=== PATIENT | female | born 1955 | race Caucasian/White ===

== ENCOUNTER 2017-08-20 20:01 | Emergency (ER) | payer SELFPAY ==
--- NOTE | 2017-08-20 20:24 | PD ---
HPI Chief Complaint: Back/ Neck Pain or Injury Time Seen by Provider: 20:20 Travel History International Travel<30 days: No Contact w/Intl Traveler<30days: No Traveled to known affect area: No History of Present Illness HPI PATIENT STATES THAT OVER LAST FEW DAYS SHE HAS HAD WORSENING DIFFUSE ABDOMINAL CRAMPING PAIN, 02/23, WHICH IS DIFFERENT THAN HER CHRONIC PAINS THAT SHE HAS HAD FOR YEARS (HIP, NECK AND BACK---THESE WERE TABLED FOR OUTPATIENT EVALUATION). THE ABDOMINAL PAIN APPEARS TO WORSEN WITH ACTIVITY LIKE WALKING, DENIES ANY FEVER/N/V/ ASSOC WITH THIS PAIN. DENIES ANY ALLEVIATING FACTORS NO PCP SINCE MOVED FROM [place] IN OCT ALL:[facility] PSHX: GB, COLONOSCOPY "NEGATIVE" ACCORDING TO PATIENT DONE THIS OCTOBER WHEN SHE MOVED TO [place] PMHX: PFSH Past Medical History Cardiovascular Problems: Yes (HTN) Social History Tobacco Use: No Allergies-Medications (Allergen,Severity, Reaction): Coded Allergies: Iodinated Contrast- Oral and IV Dye (Verified Allergy, Severe, 08/20/17) hives and itching amoxicillin (Verified Allergy, Severe, Hives, 08/20/17) cefuroxime (Verified Allergy, Severe, Hives, 08/20/17) dulaglutide (Verified Allergy, Severe, 08/20/17) hydrochlorothiazide (Verified Allergy, Severe, 08/20/17) liraglutide (Verified Allergy, Severe, 08/20/17) gabapentin (Verified Adverse Reaction, Severe, anxiety, 08/20/17) Uncoded Allergies: all statins (Allergy, Severe, 08/20/17) Reported Meds & Prescriptions Reported Meds & Active Scripts Active Reported Levothyroxine (Levothyroxine Sodium) 100 Mcg Tab 100 Mcg PO DAILY Pantoprazole (Pantoprazole Sodium) 40 Mg Tab 40 Mg PO DAILY Metformin (Metformin HCl) 1,000 Mg Tab 1,000 Mg PO BIDPC Glimepiride 2 Mg Tab 2 Mg PO DAILY Take with breakfast or first main meal Metoprolol Tartrate 25 Mg Tab 25 Mg PO BID Lisinopril 10 Mg Tab 10 Mg PO DAILY Doxazosin (Doxazosin Mesylate) 2 Mg Tab 2 Mg PO DAILY Paxil (Paroxetine HCl) 10 Mg Tab 20 Mg PO DAILY Review of Systems Except as stated in HPI: all other systems reviewed are Neg General / Constitutional: No: Fever Eyes: No: Visual changes HENT: No: Headaches Cardiovascular: No: Chest Pain or Discomfort Respiratory: No: Shortness of Breath Gastrointestinal: Positive: Nausea, Abdominal Pain Genitourinary: No: Dysuria Musculoskeletal: No: Pain Skin: No Rash Neurologic: No: Weakness Psychiatric: No: Depression Endocrine: No: Polydipsia Hematologic/Lymphatic: No: Easy Bruising Physical Exam Narrative GENERAL: SKIN: Warm and dry. HEAD: Atraumatic. Normocephalic. EYES: Pupils equal and round. No scleral icterus. No injection or drainage. ENT: No nasal bleeding or discharge. Mucous membranes pink and moist. NECK: Trachea midline. No JVD. CARDIOVASCULAR: Regular rate and rhythm. RESPIRATORY: No accessory muscle use. Clear to auscultation. Breath sounds equal bilaterally. GASTROINTESTINAL: Abdomen soft, non-tender, nondistended. MUSCULOSKELETAL: Extremities without clubbing, cyanosis, or edema. No obvious deformities. NEUROLOGICAL: Awake and alert. No obvious cranial nerve deficits. Motor grossly within normal limits. Five out of 5 muscle strength in the arms and legs. Normal speech. PSYCHIATRIC: Appropriate mood and affect; insight and judgment normal. Data Data Last Documented VS Vital Signs Date Time Temp Pulse Resp B/P (MAP) Pulse Ox O2 Delivery O2 Flow Rate FiO2 08/20/17 21:58 98.7 67 18 206/97 (133) 98 Room Air Orders Orders Complete Blood Count With Diff (08/20/17 20:32) Comprehensive Metabolic Panel (08/20/17 20:32) Lipase (08/20/17 20:32) Prothrombin Time / Inr (Pt) (08/20/17 20:32) Act Partial Throm Time (Ptt) (08/20/17 20:32) Urinalysis - C+S If Indicated (08/20/17 20:32) Iv Access Insert/Monitor (08/20/17 20:32) Ecg Monitoring (08/20/17 20:32) Oximetry (08/20/17 20:32) NPO (08/20/17 20:32) Sodium Chloride 0.9% Flush (Ns Flush) (08/20/17 20:45) Electrocardiogram (08/20/17 20:32) Ct Abd/Pel W/O Iv Contrast (08/20/17 21:17) Morphine Inj (Morphine Inj) (08/20/17 22:15) Ondansetron Inj (Zofran Inj) (08/20/17 22:15) Morphine Inj (Morphine Inj) (08/20/17 23:15) Labs Laboratory Tests Test 08/20/17 20:40 White Blood Count 6.3 TH/MM3 Red Blood Count 4.26 MIL/MM3 Hemoglobin 13.4 GM/DL Hematocrit 38.9 % Mean Corpuscular Volume 91.2 FL Mean Corpuscular Hemoglobin 31.4 PG Mean Corpuscular Hemoglobin Concent 34.5 % Red Cell Distribution Width 13.2 % Platelet Count 148 TH/MM3 Mean Platelet Volume 7.2 FL Neutrophils (%) (Auto) 48.8 % Lymphocytes (%) (Auto) 37.6 % Monocytes (%) (Auto) 9.8 % Eosinophils (%) (Auto) 2.6 % Basophils (%) (Auto) 1.2 % Neutrophils # (Auto) 3.1 TH/MM3 Lymphocytes # (Auto) 2.4 TH/MM3 Monocytes # (Auto) 0.6 TH/MM3 Eosinophils # (Auto) 0.2 TH/MM3 Basophils # (Auto) 0.1 TH/MM3 CBC Comment DIFF FINAL Differential Comment Prothrombin Time 10.4 SEC Prothromb Time International Ratio 1.0 RATIO Activated Partial Thromboplast Time 25.6 SEC Urine Color LIGHT-YELLOW Urine Turbidity CLEAR Urine pH 6.0 Urine Specific [place] 1.006 Urine Protein NEG mg/dL Urine Glucose (UA) NEG mg/dL Urine Ketones NEG mg/dL Urine Occult Blood NEG Urine Nitrite NEG Urine Bilirubin NEG Urine Urobilinogen LESS THAN 2.0 MG/DL Urine Leukocyte Esterase NEG Urine WBC 2 /hpf Urine Bacteria RARE /hpf Microscopic Urinalysis Comment CULT NOT INDICATED Blood Urea Nitrogen 10 MG/DL Creatinine 1.06 MG/DL Random Glucose 107 MG/DL Total Protein 7.1 GM/DL Albumin 3.9 GM/DL Calcium Level 8.8 MG/DL Alkaline Phosphatase 56 U/L Aspartate Amino Transf (AST/SGOT) 58 U/L Alanine Aminotransferase (ALT/SGPT) 68 U/L Total Bilirubin 0.3 MG/DL Sodium Level 139 MEQ/L Potassium Level 4.2 MEQ/L Chloride Level 105 MEQ/L Carbon Dioxide Level 24.8 MEQ/L Anion Gap 9 MEQ/L Estimat Glomerular Filtration Rate 52 ML/MIN Lipase 244 U/L MDM Medical Decision Making Medical Screen Exam Complete: Yes Emergency Medical Condition: Yes Medical Record Reviewed: Yes Differential Diagnosis APPENDICITIS V COLITIS V KIDNEY STONES V SBO V ILEUS Narrative Course PATIENT WAS NOT FOUND TO HAVE ANY SURGICAL CASE (APPY, SBO, ILEUS)...WILL D/C HOME AND RECC GI FOLLOWUP Diagnosis Primary Impression: Abdominal pain Qualified Codes: R10.84 - Generalized abdominal pain Additional Impressions: MILD HEPATOSPLENOMEGALY Scoliosis Qualified Codes: M41.129 - Adolescent idiopathic scoliosis, site unspecified Patient Instructions: Abdominal Pain (ED), General Instructions, Scoliosis in Children (GEN) Scripts Tramadol (Ultram) 50 Mg Tab 50 MG PO Q4H Y for PAIN, #10 TAB 0 Refills Prov: Sebastian Selby MD 08/20/17 Sucralfate (Carafate) 1 Gram Tab 1 GM PO TID for Ulcer Prevention, #90 TAB 0 Refills On empty stomach Prov: Sebastian Selby MD 08/20/17 Disposition: 01 DISCHARGE HOME Condition: Stable Sebastian Selby MD Aug 20, 2017 20:24
[2017-08-20] MEDS ORDERED: LISI10TA3 PO (20:27)
[2017-08-20] MEDS ORDERED: GLIM1TAB PO (20:27)
[2017-08-20] MEDS ORDERED: METO25TA3 PO (20:27)
[2017-08-20] MEDS ORDERED: PANT40TA3 PO (20:27)
[2017-08-20] MEDS ORDERED: DOXA1TAB35 PO (20:27)
[2017-08-20] MEDS ORDERED: METO1TAB42 PO (20:27)
[2017-08-20] MEDS ORDERED: PAXI10TA8 PO (20:27)
[2017-08-20] MEDS ORDERED: METF1000 PO (20:27)
[2017-08-20] MEDS ORDERED: GLIM2TAB PO (20:27)
[2017-08-20] MEDS ORDERED: LEVO100T5 PO (20:31)
[2017-08-20] MEDS ORDERED: SODIUM CHLORIDE 0.9% FLUSH 10 ML FLUSH IV FLUSH PRN (20:45)
[2017-08-20 21:11] LABS: AUTOMATED NEUTROPHIL # 3.1 TH/MM3 (1.8-7.7); BASOPHIL # 0.1 TH/MM3 (0-0.2); BASOPHIL % 1.2 % (0.0-2.0); EOSINOPHIL # 0.2 TH/MM3 (0-0.4); EOSINOPHIL % 2.6 % (0.0-4.0); HEMATOCRIT 38.9 % (35.0-46.0); HEMO FLAGS DIFF FINAL; LYMPH % 37.6 % (9.0-44.0); LYMPHOCYTE # 2.4 TH/MM3 (1.0-4.8); MEAN CELL VOLUME 91.2 FL (80.0-100.0); MEAN CORPUSCULAR HEMOGLOBIN 31.4 PG (27.0-34.0); MEAN CORPUSCULAR HGB CONC 34.5 % (32.0-36.0); MONO % 9.8 % (0.0-8.0); NEUT % 48.8 % (16.0-70.0); PLATELET COUNT 148 TH/MM3 (150-450); RED BLOOD COUNT 4.26 MIL/MM3 (4.00-5.30); RED CELL DISTRIBUTION WIDTH 13.2 % (11.6-17.2); WHITE BLOOD COUNT 6.3 TH/MM3 (4.0-11.0)
[2017-08-20 21:18] LABS: BACTERIA, URINE RARE /hpf; BLOOD, URINE NEG (NEG); COMMENT (UR) CULT NOT INDICATED; CULTURE IF INDICATED CULT NOT INDICATED; GLUCOSE,URINE NEG (NEG); KETONE, URINE NEG (NEG); NITRITE,URINE NEG (NEG); URINE COLOR LIGHT-YELLOW (YELLW/STRAW)
[2017-08-20 21:20] LABS: APTT (PATIENT) 25.6 SEC (24.3-30.1); PROTHROMBIN TIME - PATIENT 10.4 SEC (9.8-11.6)
[2017-08-20 21:27] LABS: ALKALINE PHOSPHATASE 56 U/L (45-117); TOTAL BILIRUBIN ADULT 0.3 MG/DL (0.2-1.0)
[2017-08-20 21:28] LABS: ALT (GPT) 68 U/L (10-53); ANION GAP 9 MEQ/L (5-15); AST (GOT) 58 U/L (15-37); BICARBONATE 24.8 MEQ/L (21.0-32.0); BLOOD UREA NITROGEN 10 MG/DL (7-18); CHLORIDE 105 MEQ/L (98-107); GLOMERULAR FILTRATION RATE 52 ML/MIN (>89); POTASSIUM 4.2 MEQ/L (3.5-5.1); SODIUM (NA) 139 MEQ/L (136-145)
[2017-08-20 21:48] VITALS: RESP 18; O2SAT 97
[2017-08-20 21:58] VITALS: BP 206/97; PULSE 67; RESP 18; TEMP 98.7; O2SAT 98
--- NOTE | 2017-08-20 22:13 | RADRPT ---
EXAM DATE/TIME: 08/20/2017 21:36 [facility] COMPARISON: No previous studies available for comparison. INDICATIONS : Patient complains of bilateral flank pain. ORAL CONTRAST: No oral contrast ingested. RADIATION DOSE: 8.22 CTDIvol (mGy) MEDICAL HISTORY : Cardiovascular disease. Hypertension. SURGICAL HISTORY : Cholecystectomy. ENCOUNTER: Initial ACUITY: 1 day PAIN SCALE: 5/10 LOCATION: Bilateral flank TECHNIQUE: Volumetric scanning of the abdomen and pelvis was performed. Using automated exposure control and ad justment of the mA and/or kV according to patient size, radiation dose was kept as low as reasonably achievable to obtain optimal diagnostic quality images. DICOM format image data is available electro nically for review and comparison. FINDINGS: LOWER LUNGS: The visualized lower lungs are clear. LIVER: Mild hepatomegaly is noted. Homogeneous density without lesion. There is no dilation of the biliary tree. No calcified gallstones. SPLEEN: Mild splenomegaly is noted. PANCREAS: Within normal limits. KIDNEYS: Normal in size and shape. There is no mass, stone, or hydronephrosis. ADRENAL GLANDS: Within normal limits. VASCULAR: There is no aortic aneurysm. BOWEL/MESENTERY: The stomach, small bowel, and colon demonstrate no acute abnormality. There is no free intraperitone al air or fluid. ABDOMINAL WALL: Within normal limits. RETROPERITONEUM: There is no lymphadenopathy. BLADDER: No wall thickening or mass. REPRODUCTIVE: Within normal limits. INGUINAL: There is no lymphadenopathy or hernia. MUSCULOSKELETAL: Mild degenerative changes and scoliosis of the thoracolumbar spine are noted. CONCLUSION: 1. Mild hepatosplenomegaly. 2. No acute obstructive uropathy. 3. Mild degenerative changes and scoliosis of the thoracolumbar spine. aNvi Haq MD on August 20, 2017 at 22:09 Board Certified Radiologist. This report was verified electronically.
[2017-08-20] MEDS ORDERED: MORPHINE SULFATE 4 MG/ML INJ IM ONE (22:15)
[2017-08-20] MEDS ORDERED: ONDANSETRON HCL 4 MG/2 ML VIAL IV PUSH ONE (22:15)
[2017-08-20] MEDS ORDERED: TRAM50 PO (23:13)
[2017-08-20] MEDS ORDERED: CARA1TAB6 PO (23:13)
[2017-08-20] MEDS ORDERED: MORPHINE SULFATE 4 MG/ML INJ IV PUSH ONE (23:15)
== END 2017-08-20 23:56 | disposition home or self-care (01) ==
LOC: NEPD 20:01
DX: R10.84 Generalized abdominal pain (principal); R11.0 Nausea; R16.2 Hepatomegaly with splenomegaly, not elsewhere classified; M41.9 Scoliosis, unspecified; M51.35 Other intervertebral disc degeneration, thoracolumbar region; I10 Essential (primary) hypertension; Z88.0 Allergy status to penicillin; Z79.899 Other long term (current) drug therapy; Z88.8 Allergy status to other drugs, medicaments and biological substances
CPT/HCPCS: 74176; 80053; 81001; 83690; 85025; 85610; 85730; 96372; 96374; 96375; 99285; J2270; J2405